=== PATIENT | female | born 1975 | race Caucasian/White ===

== ENCOUNTER 2019-05-10 22:47 | Emergency (ER) | payer BC ==
[~2019-05-10] VITALS: Ht 152.4 cm; Wt 64.4 kg
[2019-05-10 22:47] VITALS: BP 144/90
--- NOTE | 2019-05-10 22:50 | NUR ---
TO LOBBY A/W BED AMBULATORY
--- NOTE | 2019-05-10 22:56 | NUR ---
EKG PERFORMED IN TRIAGE ROOM WITH SPOUSE PRESENT
--- NOTE | 2019-05-11 00:41 | NUR ---
Mavis calix in [facility] - 05/11/19 at 0041 by MEDGJ PT AMBULATED TO ER BED 03
--- NOTE | 2019-05-11 00:42 | NUR ---
PT AMBULATED TO ER BED 04
[2019-05-11] MEDS ORDERED: KETOROLAC 60 MG/2 ML VIAL IM ONE (00:55)
[2019-05-11 01:00] VITALS: BP 101/54
--- NOTE | 2019-05-11 01:00 | NUR ---
PT ASSESSMENT COMPLETE. PT SEATED UPRIGHT IN BED. FAMILY AT BEDSIDE. WILL CONTINUE TO MONITOR.
== END 2019-05-11 01:30 | disposition home or self-care (01) ==
LOC: MED 22:47
DX: S46.812A Strain of other muscles, fascia and tendons at shoulder and upper arm level, left arm, initial encounter (principal); R07.89 Other chest pain; E11.9 Type 2 diabetes mellitus without complications; X58.XXXA Exposure to other specified factors, initial encounter; Y93.89 Activity, other specified; Y92.89 Other specified places as the place of occurrence of the external cause; Y99.8 Other external cause status
CPT/HCPCS: 93005; 96372; 99283; J1885